=== PATIENT | female | born 1955 | race Caucasian/White ===

== ENCOUNTER → 2016-07-03 | Outpatient (CLI) | payer BC ==
[~2016-07-03] MED LIST: ASP325TEC PO; CHOL2000 PO; CRESTOR40 MG PO; ESCT10T PO; ESZO3TAB30 PO; HYDR-3820 PO; LISI20TA PO; MTF500T PO; OMG1KC PO
--- NOTE | 2016-07-03 20:23 | Diagnostic Imaging Report ---
INDICATION: Followup exam. EXAMINATION: Unilateral diagnostic right mammogram. The current study was also evaluated with a Computer Aided Detection (CAD) system. FINDINGS: The mammogram performed on 01/10/16 noted scattered fibroglandular densities in the retroareolar region of the right breast as well as a fairly well-circumscribed fat density nodule, measuring 1.5 cm. The subsequent ultrasound examination of the right breast, performed that same day, showed a small cystic mass containing internal debris. On this exam, the density in the retroareolar region has decreased since the previous study. The small rounded lucency in the retroareolar region seen previously is again evident and essentially no different. The overall appearance of the right breast is otherwise stable. IMPRESSION: 1. The density in the retroareolar region has decreased since the previous exam. The reason for this is not certain. It is possible that there could have been an element of edema/inflammation present on the prior exam which has subsequently resolved. 2. The small rounded lucency in the retroareolar region appears stable. Most likely this is a benign process. Ultrasound has been scheduled for further study. ACR BI-RADS Category 0: Incomplete. (Needs additional imaging evaluation). Result letter will be mailed to the patient. Note: At least 10% of breast cancer is not imaged by mammography. Dictated by: Dictated on workstation # [id number]
--- NOTE | 2016-07-03 20:29 | Diagnostic Imaging Report ---
INDICATION: Followup exam. EXAMINATION: Ultrasound of the right breast. FINDINGS: The previous right breast ultrasound exam performed on 01/10/16 noted a small 0.9 x 0.7 x 0.7 cm cystic lesion with some internal lobulated echogenicity. On this exam, the cystic lesion is now virtually anechoic. It measures essentially no different than on the prior study. I do suspect that this is a benign process. The diagnostic mammogram performed earlier today in conjunction with the study also suggests that this lesion has a benign appearance. IMPRESSION: 1. The debris within the cystic structure seen on the previous study has resolved. This cyst now has a generally benign appearance. 2. I would recommend that the patient have her annual mammogram on schedule in December of this year. If the mammogram shows that there has been some change in the cyst, then a repeat ultrasound exam would be indicated. If the mammographic finding appears stable, then I do not feel that there would be any further need for ultrasound surveillance of this finding. ACR BI-RADS Category 3: Probably benign findings. Result letter will be mailed to the patient. Note: At least 10% of breast cancer is not imaged by mammography. Dictated by: Dictated on workstation # [id number]
== END ==
LOC: RAD 08:02
PROVIDERS: ATTEND Nurse Practitioner Community Health
DX: N63 Unspecified lump in breast (principal)

== ENCOUNTER → 2017-02-19 | Outpatient (CLI) | payer BC ==
--- NOTE | 2017-02-19 20:01 | Diagnostic Imaging Report ---
EXAMINATION: Bilateral diagnostic mammogram with tomography. The current study was also evaluated with a Computer Aided Detection (CAD) system. INDICATION: Followup cystic lesion in the right breast. FINDINGS: There is a small oil cyst in the right retroareolar region. Benign-appearing calcifications are seen. Scattered fibroglandular densities are noted. No adverse development. IMPRESSION: Stable mammographic findings with no evidence of malignancy. Annual screening mammograms recommended. ACR BI-RADS Category 2: Benign findings. Result letter will be mailed to the patient. Note: At least 10% of breast cancer is not imaged by mammography. Dictated by: Dictated on workstation # [id number]
== END ==
LOC: RAD 12:50
PROVIDERS: ATTEND Nurse Practitioner Community Health
DX: N63.10 Unspecified lump in the right breast, unspecified quadrant (principal)
CPT/HCPCS: 77066

== ENCOUNTER → 2019-05-04 | Outpatient (CLI) | payer MEDICARE, OTHER ==
--- NOTE | 2019-05-04 13:34 | Diagnostic Imaging Report ---
Indication: Routine screening. Comparison is made with prior mammogram from 02/19/2017 and 01/10/2016. 2-D and 3-D bilateral screening mammography was performed with CAD. Scattered fibroglandular densities are identified bilaterally. Peripherally calcified oil cyst in the right retroareolar region is again noted. There are benign calcifications bilaterally. No spiculated mass or malignant appearing microcalcifications are seen. Axillae are unremarkable. IMPRESSION: BI-RADS Category 2 No mammographic features suspicious for malignancy are identified. ACR BI-RADS Category 2: Benign findings. Result letter will be mailed to the patient. Note: At least 10% of breast cancer is not imaged by mammography. Dictated by: Dictated on workstation # [id number]
--- NOTE | 2019-05-04 16:22 | Diagnostic Imaging Report ---
INDICATION: Postmenopausal female. COMPARISON: None. FINDINGS: AP Spine L2-L4: [BMD (g/cm2): 1.392] [T-Score: 1.6] [Z-Score: 2.7] [BMD Previous: na] [BMD % Change: na] LT Hip Neck: [BMD (g/cm2): 0.932] [T-Score: -0.8] [Z-Score: 0.4] LT Hip Total: [BMD (g/cm2):1.056] [T-Score:0.4] [Z-Score: 1.2] [BMD Previous: na] [BMD % Change: na] RT Hip Neck: [BMD (g/cm2):0.941] [T-Score:-0.7] [Z-Score:0.4] RT Hip Total: [BMD (g/cm2):1.070] [T-score:0.5] [Z-Score:1.3] [BMD Previous:na] [BMD % Change:na] *Indicates significant change from prior examination based on 95% confidence level. World Health Organization criteria for BMD interpretation classify patients as Normal (T-score at or above -1.0), Osteopenic (T-score between -1.0 and -2.5) or Osteoporotic (T-score at or below -2.5). LIMITATIONS AND MODIFICATION: None. IMPRESSION: 1. Normal bone mineral density. 2. Baseline examination. 3. See below National Osteoporosis Foundation guidelines on when to potentially initiate pharmacologic therapy. Based on the National Osteoporosis Foundation Guidelines, pharmacologic treatment should be initiated in any of the following, unless clinical conditions suggest otherwise: * Any patient with prior fragility fracture of the hip or vertebrae. A spine fracture indicates 5X risk for subsequent spine fracture and 2X risk for subsequent hip fracture. * Osteoporosis (T-score <-2.5). * Postmenopausal women and men age 50 and older with low bone mass/osteopenia (T-score between -1.0 and -2.5) by DXA and 10-year major osteoporotic fracture greater than 20% or a 10-year probability of hip fracture greater than 3%. These fracture risks are supplied above in the FRAX score, if applicable. * Clinician judgment and/or patient preferences may indicate treatment for people with 10-year fracture probabilities above or below these levels. Dictated by: Dictated on workstation # [id number]
== END ==
LOC: RAD 12:42
PROVIDERS: ATTEND Nurse Practitioner Primary Care
DX: Z12.31 Encounter for screening mammogram for malignant neoplasm of breast (principal); N95.9 Unspecified menopausal and perimenopausal disorder; Z78.0 Asymptomatic menopausal state
CPT/HCPCS: 77067; 77080

== ENCOUNTER → 2020-05-23 | Outpatient (CLI) | payer MEDICARE, OTHER ==
[~2020-05-23] MED LIST changes: +ACHYD1T PO; -HYDR-3820 PO
--- NOTE | 2020-05-23 13:46 | Diagnostic Imaging Report ---
INDICATION: Routine screening. COMPARISON: 05/04/2019 and 02/19/2017. TECHNIQUE: 2D and 3D bilateral screening mammography was performed with CAD. FINDINGS: Scattered fibroglandular densities are identified bilaterally. Benign calcifications in both breasts are again noted. No dominant mass or malignant appearing microcalcifications are seen. The axillae are unremarkable. IMPRESSION: No mammographic features suspicious for malignancy are identified. ACR BI-RADS Category 2: Benign findings. Result letter will be mailed to the patient. Note: At least 10% of breast cancer is not imaged by mammography. Dictated by: Dictated on workstation # [id number]
== END ==
LOC: RAD 10:00
PROVIDERS: ATTEND Nurse Practitioner Family
DX: Z12.31 Encounter for screening mammogram for malignant neoplasm of breast (principal)
CPT/HCPCS: 77063; 77067

== ENCOUNTER → 2023-02-24 | Outpatient (CLI) | payer MEDICARE, OTHER ==
[2023-02-24 08:17] VITALS: BP 161/120
== END ==
LOC: CARD 08:00
PROVIDERS: ATTEND Nurse Practitioner
DX: R10.13 Epigastric pain (principal); R07.89 Other chest pain
CPT/HCPCS: 93017